=== PATIENT | male | born 1985 | race Caucasian/White ===

== ENCOUNTER 2018-05-02 01:19 | Inpatient (IN) | payer OTHER ==
[2018-05-02] VITALS (76 sets, daily range): BP systolic 61–154; BP diastolic 33–106
[~2018-05-02] VITALS: Ht 175.3 cm; Wt 58.0 kg
[2018-05-02] MEDS: NOREPINEPHRINE 8 MG/250ML KIT 250 ML IV SCH ×2 (01:45→23:29)
[2018-05-02] MEDS ORDERED: NOREPINEPHRINE 8 MG/250ML KIT 250 ML IV ONE (01:45)
[2018-05-02 01:49] LABS: Basophils # (auto) 0.1 uL; Eosinophils # (auto) 0 uL; Hemoglobin 13.1 g/dL (13.5-17.5); Lymphocytes # (auto) 1.8 uL; Monocytes # (auto) 0.3 uL; Platelet Count (auto) 216 10^3/uL (140-450)
[2018-05-02 01:50] LABS: Basophils % (auto) 0.9 % (0.0-2.0); Eosinophils % (auto) 0.2 % (0.0-7.0); Hematocrit 42.9 % (41.0-53.0); Lymphocytes % (auto) 23.8 % (10.0-50.0); Mean Corpuscular Hemoglobin 30.6 pg (28.0-32.0); Mean Corpuscular Hgb Conc. 30.4 g/dL (32.0-36.0); Mean Corpuscular Volume 100.7 fL (80.0-100.0); Monocytes % (auto) 3.7 % (0.0-12.0); Neutrophils # (auto) 5.5 uL; Neutrophils % (auto) 71.4 % (37.0-80.0); Nucleated Red Blood Cells % 0.1 %; Red Blood Cells 4.26 10^6/uL (4.5-5.90); Red Cell Distribution Width 14.1 % (11.8-14.3); White Blood Cell 7.7 10^3/uL (4.4-10.8)
[2018-05-02 02:02] LABS: INR 1.06 (0.9-1.15); Partial Thromboplastin Time 58.5 sec (23.78-33.04); Prothrombin Time 11.3 sec (9.27-12.13)
[2018-05-02 02:08] LABS: BUN/Creatinine Ratio 12.3; Calcium 11.2 mg/dL (8.5-10.1)
[2018-05-02 02:12] LABS: Bilirubin, Total 0.7 mg/dL (0.2-1.0)
[2018-05-02] MEDS ORDERED: DEXAMETHASONE SOD PHOS 10MG/1ML VIAL INJ IV ONE (02:30)
[2018-05-02] MEDS ORDERED: FUROSEMIDE 20 MG/2 ML VIAL IV ONE (02:30)
[2018-05-02] MEDS ORDERED: SODIUM CHLORIDE 0.9% 1,000 ML IV ONE (02:30)
[2018-05-02] MEDS ORDERED: cefTRIAXone 1GM/10ml IVPUSH 10 ML IV ONE (02:30)
[2018-05-02] MEDS: MIDAZOLAM DRIP 50 mg/50mL 50 ML IV SCH ×4 (03:00→18:45)
[2018-05-02 03:11] LABS: Lactic Acid w/Reflex 9.8 mmol/L (0.4-2.0)
[2018-05-02] MEDS ORDERED: MIDAZOLAM DRIP 50 mg/50mL 50 ML IV ONE (03:19)
[2018-05-02] MEDS ORDERED: SODIUM BICARBONATE 8.4 % INJ 50ML VIAL IV ONE (03:45)
[2018-05-02 05:12] LABS: Urine Bacteria NONE SEEN /hpf (None Seen); Urine Blood 2+ /uL (Negative); Urine Specific Gravity 1.023 (1.001-1.035); Urine Sperm PRESENT /hpf (None Seen); Urine WBC 12 /hpf (0 - 3)
[2018-05-02 05:20] LABS: Alcohol, Urine < 3.0 mg/dL (0-5); Amphetamine Screen, Urine NEGATIVE (NEGATIVE); Barbiturate Scree,Urine NEGATIVE (NEGATIVE); Benzodiazephine Screen, Urine NEGATIVE (NEGATIVE); Cannabinoid Screen, Urine POSITIVE (NEGATIVE); Cocaine Screen, Urine NEGATIVE (NEGATIVE); Opiate Scree,Urine NEGATIVE (NEGATIVE); Phencyclidine Screen, Urine NEGATIVE (NEGATIVE)
[2018-05-02] MEDS ORDERED: SODIUM CHLORIDE 0.9% 500 ML IV ONE (06:45)
[2018-05-02] MEDS ORDERED: DEXTROSE (50%) 50ML SYRG IV PRN (07:00)
[2018-05-02] MEDS ORDERED: CITA-77 PO (09:01)
[2018-05-02] MEDS: PANTOPRAZOLE 40 MG/10 ML VIAL IV SCH (09:53)
[2018-05-02] MEDS ORDERED: ENOXAPARIN SOD 40 MG/0.4 ML SYRINGE SC SCH (10:00)
[2018-05-02] MEDS: PROPOFOL 100 ML IV SCH (11:47)
[2018-05-02] MEDS: InsuLIN REG 1unit/0.01ml Soln (100units/ml) SC SCH ×3 (11:59→23:45)
[2018-05-02] MEDS: ACCU-CHEK COMFORT CURVE STRIP VI SCH ×3 (11:59→23:45)
[2018-05-02] MEDS ORDERED: EPINEPHrine HCL 1 MG/10 ML SYRG IV ONE (13:28)
[2018-05-02] MEDS ORDERED: SODIUM BICARBONATE 8.4% INJ 50ML SYRINGE IV ONE (13:28)
[2018-05-02] MEDS ORDERED: CALCIUM CHLOR(10%) 100MG/ML 10ML SYRINGE IV ONE (13:28)
[2018-05-02] MEDS: SODIUM CHLORIDE 0.9% 1,000 ML IV SCH ×2 (14:00→17:16)
[2018-05-03] VITALS (107 sets, daily range): BP systolic 104–136; BP diastolic 71–93
[2018-05-03] MEDS: MIDAZOLAM DRIP 50 mg/50mL 50 ML IV SCH (00:23)
[2018-05-03] MEDS: SODIUM CHLORIDE 0.9% 1,000 ML IV SCH ×2 (02:48→12:00)
[2018-05-03] MEDS: PROPOFOL 100 ML IV SCH (02:48)
[2018-05-03] MEDS ORDERED: cefTRIAXone 1GM/10ml IVPUSH 10 ML IV SCH (04:00)
[2018-05-03 04:37] LABS: BUN/Creatinine Ratio 23.1; Calcium 7.5 mg/dL (8.5-10.1); Potassium 3.8 mmol/L (3.5-5.1)
[2018-05-03] MEDS: ACCU-CHEK COMFORT CURVE STRIP VI SCH ×3 (05:21→17:32)
[2018-05-03] MEDS: InsuLIN REG 1unit/0.01ml Soln (100units/ml) SC SCH ×3 (05:21→17:32)
[2018-05-03] MEDS: PANTOPRAZOLE 40 MG/10 ML VIAL IV SCH (09:25)
[2018-05-03 11:23] LABS: Magnesium 1.8 mg/dL (1.6-2.6); Potassium 3.8 mmol/L (3.5-5.1)
[2018-05-03] MEDS: PIPERACILLIN-TAZOB 3.375GM 100 ML IV SCH ×2 (12:28→18:05)
[2018-05-03] MEDS: D5W/SOD CHL 0.45% 1,000 ML IV SCH ×2 (12:29→22:30)
[2018-05-04] VITALS (104 sets, daily range): BP systolic 91–164; BP diastolic 47–117
[2018-05-04] MEDS: ACCU-CHEK COMFORT CURVE STRIP VI SCH ×4 (00:30→18:07)
[2018-05-04] MEDS: InsuLIN REG 1unit/0.01ml Soln (100units/ml) SC SCH ×4 (00:30→18:07)
[2018-05-04] MEDS: PIPERACILLIN-TAZOB 3.375GM 100 ML IV SCH ×4 (01:08→20:20)
[2018-05-04 03:52] LABS: Basophils # (auto) 0 uL; Basophils % (auto) 0.1 % (0.0-2.0); Eosinophils # (auto) 0 uL; Hematocrit 31.5 % (41.0-53.0); Hemoglobin 10.7 g/dL (13.5-17.5); Lymphocytes # (auto) 1.3 uL; Lymphocytes % (auto) 5.8 % (10.0-50.0); Mean Corpuscular Hemoglobin 30.3 pg (28.0-32.0); Mean Corpuscular Hgb Conc. 33.9 g/dL (32.0-36.0); Mean Corpuscular Volume 89.4 fL (80.0-100.0); Monocytes # (auto) 1.1 uL; Monocytes % (auto) 4.8 % (0.0-12.0); Neutrophils # (auto) 20.6 uL; Neutrophils % (auto) 89.3 % (37.0-80.0); Platelet Count (auto) 179 10^3/uL (140-450); Red Blood Cells 3.53 10^6/uL (4.5-5.90); Red Cell Distribution Width 13.2 % (11.8-14.3); White Blood Cell 23.1 10^3/uL (4.4-10.8)
[2018-05-04 04:11] LABS: BUN/Creatinine Ratio 20.2; Calcium 6.9 mg/dL (8.5-10.1); Potassium 3.9 mmol/L (3.5-5.1)
[2018-05-04] MEDS: MIDAZOLAM DRIP 50 mg/50mL 50 ML IV SCH (04:20)
[2018-05-04 04:30] LABS: Albumin 2.5 g/dL (3.4-5.0); Bilirubin, Direct 0.2 mg/dL (0-0.2); Bilirubin, Total 0.6 mg/dL (0.2-1.0); Magnesium 2.2 mg/dL (1.6-2.6); Total Protein 5.8 g/dL (6.4-8.2)
[2018-05-04] MEDS: PANTOPRAZOLE 40 MG/10 ML VIAL IV SCH (09:30)
[2018-05-04] MEDS: D5W/SOD CHL 0.45% 1,000 ML IV SCH ×2 (11:26→19:30)
[2018-05-04] MEDS: PROPOFOL 100 ML IV SCH (19:30)
[2018-05-04] MEDS ORDERED: LABETALOL HCL 5 MG/ML ML 20ML VIAL IV ONE (21:15)
[2018-05-05] VITALS (105 sets, daily range): BP systolic 103–206; BP diastolic 11–123
[2018-05-05] MEDS: InsuLIN REG 1unit/0.01ml Soln (100units/ml) SC SCH ×4 (00:30→18:00)
[2018-05-05] MEDS: ACCU-CHEK COMFORT CURVE STRIP VI SCH ×4 (00:30→18:00)
[2018-05-05] MEDS: PIPERACILLIN-TAZOB 3.375GM 100 ML IV SCH ×4 (01:05→18:49)
[2018-05-05] MEDS: PROPOFOL 100 ML IV SCH ×2 (03:00→11:24)
[2018-05-05] MEDS: MIDAZOLAM DRIP 50 mg/50mL 50 ML IV SCH (03:00)
[2018-05-05 03:52] LABS: Basophils # (auto) 0.1 uL; Basophils % (auto) 0.3 % (0.0-2.0); Eosinophils # (auto) 0 uL; Eosinophils % (auto) 0.1 % (0.0-7.0); Hematocrit 30.6 % (41.0-53.0); Hemoglobin 10.6 g/dL (13.5-17.5); Lymphocytes # (auto) 1.9 uL; Lymphocytes % (auto) 10.5 % (10.0-50.0); Mean Corpuscular Hemoglobin 30.9 pg (28.0-32.0); Mean Corpuscular Hgb Conc. 34.5 g/dL (32.0-36.0); Mean Corpuscular Volume 89.5 fL (80.0-100.0); Monocytes # (auto) 0.8 uL; Monocytes % (auto) 4.2 % (0.0-12.0); Neutrophils # (auto) 15.7 uL; Neutrophils % (auto) 84.9 % (37.0-80.0); Platelet Count (auto) 156 10^3/uL (140-450); Red Blood Cells 3.42 10^6/uL (4.5-5.90); White Blood Cell 18.5 10^3/uL (4.4-10.8)
[2018-05-05 04:06] LABS: BUN/Creatinine Ratio 11.4; Calcium 8.1 mg/dL (8.5-10.1); Potassium 3.2 mmol/L (3.5-5.1)
[2018-05-05] MEDS: D5W/SOD CHL 0.45% 1,000 ML IV SCH ×2 (04:30→17:48)
[2018-05-05] MEDS: POTASSIUM CHL 20MEQ/100ML 100 ML IV SCH ×2 (06:56→07:59)
[2018-05-05] MEDS: FREE WATER GT SCH ×3 (06:56→18:46)
[2018-05-05] MEDS: PANTOPRAZOLE 40 MG/10 ML VIAL IV SCH (10:10)
[2018-05-05] MEDS ORDERED: METOPROLOL TARTRATE 1MG/1ML-5ML VIAL IV PRN (12:30)
[2018-05-05 15:51] LABS: Basophils % (manual) 0 (0.0-2.0); Blast Cells 0; Eosinophils % (manual) 0 (0-7); Metamyelocytes % 0; Myelocytes % 0; Promyelocytes % 0; Reactive Lymphocytes 0
[2018-05-05] MEDS: hydrALAZINE HCL 20 MG/ML VL IV PRN ×3 (16:05→21:50)
[2018-05-05 16:09] LABS: Hemoglobin 10.9 g/dL (13.5-17.5); Mean Corpuscular Hemoglobin 31.8 pg (28.0-32.0); Mean Corpuscular Hgb Conc. 34.2 g/dL (32.0-36.0); Mean Corpuscular Volume 93.1 fL (80.0-100.0); Platelet Count (auto) 165 10^3/uL (140-450); Red Blood Cells 3.43 10^6/uL (4.5-5.90); Red Cell Distribution Width 13.2 % (11.8-14.3)
[2018-05-05] MEDS: METOPROLOL TARTRATE 1MG/1ML-5ML VIAL IV PRN (17:47)
[2018-05-05] MEDS ORDERED: METOPROLOL TARTRATE 1MG/1ML-5ML VIAL IV SCH (18:00)
[2018-05-05] MEDS ORDERED: D5W/SOD CHL 0.45% 1,000 ML IV SCH (18:30)
[2018-05-05] MEDS: MORPHINE SULF INJ 2 MG/ML SYRINGE 1ML IV PRN ×2 (18:45→22:30)
[2018-05-05 19:33] LABS: Albumin 2.7 g/dL (3.4-5.0); BUN/Creatinine Ratio 8.5; Bilirubin, Direct 0.3 mg/dL (0-0.2); Bilirubin, Total 1.2 mg/dL (0.2-1.0); Phosphorus 1.7 mg/dL (2.5-4.90); Potassium 3.5 mmol/L (3.5-5.1); Total Protein 6.7 g/dL (6.4-8.2)
[2018-05-05 19:39] LABS: Band Neutrophils % (manual) 1; Basophils % (manual) 0 (0.0-2.0); Blast Cells 0; Eosinophils % (manual) 0 (0-7); Metamyelocytes % 0; Myelocytes % 0; Promyelocytes % 0; Reactive Lymphocytes 0
[2018-05-05 19:40] LABS: Lymphocytes % (manual) 10 (10.0-50.0); Monocytes % (manual) 4 (0-12)
[2018-05-05 19:59] LABS: Urine Bacteria FEW /hpf (None Seen); Urine Blood Negative /uL (Negative); Urine Mucus FEW (None Seen); Urine Specific Gravity 1.013 (1.001-1.035); Urine WBC 3 /hpf (0 - 3)
[2018-05-05 21:18] LABS: Band Neutrophils % (manual) 0; Basophils % (manual) 0 (0.0-2.0); Blast Cells 0; Eosinophils % (manual) 0 (0-7); Metamyelocytes % 0; Myelocytes % 0; Promyelocytes % 0; Reactive Lymphocytes 0
[2018-05-05] MEDS: LORazepam 2MG/ML-1ML VIAL IV PRN (21:35)
[2018-05-05 21:37] LABS: Hematocrit 32.5 % (41.0-53.0); Hemoglobin 11.3 g/dL (13.5-17.5); Mean Corpuscular Hemoglobin 31.2 pg (28.0-32.0); Mean Corpuscular Hgb Conc. 34.6 g/dL (32.0-36.0); Mean Corpuscular Volume 90.3 fL (80.0-100.0); Platelet Count (auto) 208 10^3/uL (140-450); Red Cell Distribution Width 13.2 % (11.8-14.3); White Blood Cell 25.3 10^3/uL (4.4-10.8)
[2018-05-05 21:38] LABS: INR 1.07 (0.9-1.15); Prothrombin Time 11.4 sec (9.27-12.13)
[2018-05-05 21:47] LABS: Albumin 2.7 g/dL (3.4-5.0); BUN/Creatinine Ratio 10.2; Bilirubin, Direct 0.5 mg/dL (0-0.2); Bilirubin, Total 1.5 mg/dL (0.2-1.0); Magnesium 2.7 mg/dL (1.6-2.6); Phosphorus 2.6 mg/dL (2.5-4.90); Potassium 3.4 mmol/L (3.5-5.1); Total Protein 6.7 g/dL (6.4-8.2)
[2018-05-05 21:48] LABS: Urine Bacteria FEW /hpf (None Seen); Urine Blood Negative /uL (Negative); Urine Mucus FEW (None Seen); Urine Specific Gravity 1.019 (1.001-1.035); Urine WBC 10 /hpf (0 - 3)
[2018-05-05 21:56] LABS: Platelet Count (auto) 165 10^3/uL (140-450)
[2018-05-05 21:57] LABS: Band Neutrophils % (manual) 1; Lymphocytes % (manual) 10 (10.0-50.0); Monocytes % (manual) 4 (0-12)
[2018-05-05 22:49] LABS: Band Neutrophils % (manual) 0; Basophils % (manual) 0 (0.0-2.0); Blast Cells 0; Eosinophils % (manual) 0 (0-7); Metamyelocytes % 0; Myelocytes % 0; Promyelocytes % 0; Reactive Lymphocytes 0
[2018-05-05 22:51] LABS: Lymphocytes % (manual) 5 (10.0-50.0)
[2018-05-05 22:52] LABS: Monocytes % (manual) 6 (0-12)
[2018-05-05 22:53] LABS: Lymphocytes % (manual) 5 (10.0-50.0); Monocytes % (manual) 6 (0-12); Nucleated Red Blood Cells % 0.1 %; Platelet Count (auto) 208 10^3/uL (140-450)
[2018-05-06] VITALS (73 sets, daily range): BP systolic 114–208; BP diastolic 64–129
[2018-05-06] MEDS: hydrALAZINE HCL 20 MG/ML VL IV PRN ×2 (00:15→15:13)
[2018-05-06] MEDS: PIPERACILLIN-TAZOB 3.375GM 100 ML IV SCH ×3 (01:09→12:13)
[2018-05-06] MEDS: METOPROLOL TARTRATE 1MG/1ML-5ML VIAL IV PRN ×3 (02:40→13:45)
[2018-05-06] MEDS: MORPHINE SULF INJ 2 MG/ML SYRINGE 1ML IV PRN ×5 (02:45→17:43)
[2018-05-06 03:06] LABS: Basophils % (manual) 0 (0.0-2.0); Blast Cells 0; Eosinophils % (manual) 0 (0-7); Metamyelocytes % 0; Myelocytes % 0; Promyelocytes % 0; Reactive Lymphocytes 0
[2018-05-06 03:18] LABS: Hematocrit 32.8 % (41.0-53.0); Mean Corpuscular Hgb Conc. 33.4 g/dL (32.0-36.0); Platelet Count (auto) 232 10^3/uL (140-450); Red Blood Cells 3.65 10^6/uL (4.5-5.90); Red Cell Distribution Width 13.2 % (11.8-14.3); White Blood Cell 21.9 10^3/uL (4.4-10.8)
[2018-05-06 03:29] LABS: INR 1.09 (0.9-1.15); Prothrombin Time 11.6 sec (9.27-12.13)
[2018-05-06 03:33] LABS: Albumin 2.6 g/dL (3.4-5.0); BUN/Creatinine Ratio 12.5; Calcium 7.9 mg/dL (8.5-10.1); Magnesium 2.6 mg/dL (1.6-2.6); Potassium 3.4 mmol/L (3.5-5.1)
[2018-05-06 03:33] LABS: Urine Bacteria NONE SEEN /hpf (None Seen); Urine Blood Negative /uL (Negative); Urine Mucus FEW (None Seen); Urine Specific Gravity 1.019 (1.001-1.035); Urine WBC 4 /hpf (0 - 3)
[2018-05-06 03:37] LABS: Bilirubin, Total 1.7 mg/dL (0.2-1.0); Total Protein 6.6 g/dL (6.4-8.2)
[2018-05-06 03:39] LABS: Bilirubin, Direct 0.5 mg/dL (0-0.2)
[2018-05-06 04:04] LABS: Band Neutrophils % (manual) 3; Lymphocytes % (manual) 11 (10.0-50.0); Monocytes % (manual) 6 (0-12)
[2018-05-06] MEDS: ACCU-CHEK COMFORT CURVE STRIP VI SCH ×3 (06:08→12:13)
[2018-05-06] MEDS: FREE WATER GT SCH ×2 (06:08)
[2018-05-06] MEDS: InsuLIN REG 1unit/0.01ml Soln (100units/ml) SC SCH ×3 (06:20→12:20)
[2018-05-06] MEDS: PANTOPRAZOLE 40 MG/10 ML VIAL IV SCH (09:06)
[2018-05-06 09:24] LABS: Basophils # (auto) 0 uL; Basophils % (auto) 0.1 % (0.0-2.0); Eosinophils # (auto) 0 uL; Eosinophils % (auto) 0.1 % (0.0-7.0); Hematocrit 32.9 % (41.0-53.0); Lymphocytes # (auto) 2.7 uL; Lymphocytes % (auto) 14.7 % (10.0-50.0); Mean Corpuscular Hemoglobin 30.1 pg (28.0-32.0); Mean Corpuscular Hgb Conc. 33.3 g/dL (32.0-36.0); Mean Corpuscular Volume 90.3 fL (80.0-100.0); Monocytes # (auto) 1.4 uL; Monocytes % (auto) 7.8 % (0.0-12.0); Neutrophils # (auto) 14.1 uL; Neutrophils % (auto) 77.3 % (37.0-80.0); Nucleated Red Blood Cells % 0.2 %; Platelet Count (auto) 231 10^3/uL (140-450); Red Blood Cells 3.64 10^6/uL (4.5-5.90); Red Cell Distribution Width 13.2 % (11.8-14.3); White Blood Cell 18.2 10^3/uL (4.4-10.8)
[2018-05-06 09:36] LABS: Urine Bacteria FEW /hpf (None Seen); Urine Blood TRACE /uL (Negative); Urine WBC 5 /hpf (0 - 3)
[2018-05-06 09:39] LABS: INR 1.1 (0.9-1.15); Prothrombin Time 11.7 sec (9.27-12.13)
[2018-05-06 09:41] LABS: Albumin 2.7 g/dL (3.4-5.0); BUN/Creatinine Ratio 11.3; Bilirubin, Direct 0.5 mg/dL (0-0.2); Bilirubin, Total 1.7 mg/dL (0.2-1.0); Calcium 8.2 mg/dL (8.5-10.1); Magnesium 2.5 mg/dL (1.6-2.6); Phosphorus 2.4 mg/dL (2.5-4.90); Potassium 3.2 mmol/L (3.5-5.1); Total Protein 6.8 g/dL (6.4-8.2)
[2018-05-06] MEDS: POTASSIUM CHL 20MEQ/100ML 100 ML IV SCH ×2 (10:30→12:13)
[2018-05-06 11:52] LABS: Band Neutrophils % (manual) 0; Basophils % (manual) 0 (0.0-2.0); Blast Cells 0; Metamyelocytes % 0; Myelocytes % 0; Promyelocytes % 0; Reactive Lymphocytes 0
[2018-05-06 12:32] LABS: Eosinophils % (manual) 1 (0-7); Lymphocytes % (manual) 17 (10.0-50.0); Monocytes % (manual) 6 (0-12); Nucleated Red Blood Cells % 0.1 %; Platelet Count (auto) 213 10^3/uL (140-450)
[2018-05-06] MEDS ORDERED: FREE WATER GT SCH (14:00)
[2018-05-06 14:21] LABS: Basophils # (auto) 0 uL; Basophils % (auto) 0.2 % (0.0-2.0); Eosinophils # (auto) 0.1 uL; Eosinophils % (auto) 0.5 % (0.0-7.0); Hematocrit 33.2 % (41.0-53.0); Hemoglobin 11.3 g/dL (13.5-17.5); Lymphocytes # (auto) 3.5 uL; Lymphocytes % (auto) 18.1 % (10.0-50.0); Mean Corpuscular Hemoglobin 31.2 pg (28.0-32.0); Mean Corpuscular Volume 91.6 fL (80.0-100.0); Monocytes # (auto) 1.6 uL; Monocytes % (auto) 8.3 % (0.0-12.0); Neutrophils # (auto) 13.9 uL; Neutrophils % (auto) 72.9 % (37.0-80.0); Nucleated Red Blood Cells % 0.2 %; Platelet Count (auto) 270 10^3/uL (140-450); Red Blood Cells 3.62 10^6/uL (4.5-5.90); Red Cell Distribution Width 13.5 % (11.8-14.3); White Blood Cell 19.1 10^3/uL (4.4-10.8)
[2018-05-06 14:29] LABS: Urine Bacteria FEW /hpf (None Seen); Urine Blood Negative /uL (Negative); Urine Specific Gravity 1.009 (1.001-1.035); Urine WBC 4 /hpf (0 - 3)
[2018-05-06] MEDS: LORazepam 2MG/ML-1ML VIAL IV PRN ×3 (14:35→17:49)
[2018-05-06 14:39] LABS: INR 1.12 (0.9-1.15); Partial Thromboplastin Time 25.8 sec (23.78-33.04); Prothrombin Time 11.9 sec (9.27-12.13)
[2018-05-06 14:40] LABS: Albumin 2.7 g/dL (3.4-5.0); BUN/Creatinine Ratio 11.8; Bilirubin, Direct 0.6 mg/dL (0-0.2); Magnesium 2.7 mg/dL (1.6-2.6); Potassium 4.3 mmol/L (3.5-5.1); Total Protein 6.9 g/dL (6.4-8.2)
[2018-05-06] MEDS ORDERED: HEPARIN IN NS 1000U/500ML (2UNIT/ML) 500 ML BAG/KIT IV ONE (14:45)
[2018-05-06] MEDS ORDERED: HEPARIN SODIUM (PORCINE) 1000 UNITS/ML 30ML VIAL IV ONE (15:15)
== END 2018-05-06 17:52 | disposition expired | DRG 922 ==
LOC: EDBD 01:19 → ER 01:22 → TELE 01:23 → ICU WEST 07:57
PROVIDERS: ADMIT Nurse Practitioner Family; ATTEND Internal Medicine Pulmonary Disease
PROC: 5A12012 Performance of Cardiac Output, Single, Manual (ICD-10-PCS; principal; 2018-05-02)
PROC: 5A1955Z Respiratory Ventilation, Greater than 96 Consecutive Hours (ICD-10-PCS; 2018-05-02)
PROC: 0BH17EZ Insertion of Endotracheal Airway into Trachea, Via Natural or Artificial Opening (ICD-10-PCS; 2018-05-02)
PROC: 02HV33Z Insertion of Infusion Device into Superior Vena Cava, Percutaneous Approach (ICD-10-PCS; 2018-05-03)
PROC: 0FB23ZX Excision of Left Lobe Liver, Percutaneous Approach, Diagnostic (ICD-10-PCS; 2018-05-06)
PROC: 0FB13ZX Excision of Right Lobe Liver, Percutaneous Approach, Diagnostic (ICD-10-PCS; 2018-05-06)
DX: T71.162A Asphyxiation due to hanging, intentional self-harm, initial encounter (principal); R40.20 Unspecified coma; J69.0 Pneumonitis due to inhalation of food and vomit; G93.6 Cerebral edema; J96.91 Respiratory failure, unspecified with hypoxia; G93.1 Anoxic brain damage, not elsewhere classified; E87.4 Mixed disorder of acid-base balance; N17.9 Acute kidney failure, unspecified; E87.0 Hyperosmolality and hypernatremia; E87.2 Acidosis; F32.9 Major depressive disorder, single episode, unspecified; E87.6 Hypokalemia; F10.11 Alcohol abuse, in remission; F17.210 Nicotine dependence, cigarettes, uncomplicated; Z66 Do not resuscitate; Z81.8 Family history of other mental and behavioral disorders; Z91.5 Personal history of self-harm
CPT/HCPCS: 36415; 36600; 47000; 51702; 70450; 71045; 72125; 76700; 80048; 80053; 80076; 80307; 81001; 82150; 82248; 82310; 82805; 82962; 82977; 83605; 83690; 83735; 83880; 84100; 84132; 84295; 84484; 85007; 85025; 85027; 85610; 85730; 86850; 86900; 86901; 87040; 87070; 87081; 87086; 87205; 92950; 93005; 94002; 94003; 95819; 96361; 96374; 96375; A6257; C9113; J0696; J1100; J1644; J1815; J2250; J2543; J2704; J3480